=== PATIENT | male | born 1960 | race Caucasian/White ===

== ENCOUNTER → 2016-08-19 | Outpatient (CLI) | payer OTHER ==
[~2016-08-19] MED LIST: AMITRYPTYLINE PO; BACLOFEN10 MG PO; CALCIUM CARBON650 M1 PO; CYMBALTA PO; DEPAKOTE ER PO; DOCUSATE SODIU100 MG PO; FIBER LAX625 MG PO; FISH OIL 1,0001 EAC1 PO; FLOVENT DISKUS50 MCG INH; GABAPENTIN600 MG; GABAPENTIN800 MG PO; HYDROCODON-ACE1 EAC5 PO; KLONOPIN0.5 MG PO; LORTAB 5-325 M1 EACH PO; LOSARTAN POTAS100 MG PO; MOBIC15 MG PO; MULTIVITAMINS1 EAC3 PO; PRAVACHOL PO; PROTONIX PO; SYNTHROID25 MCG PO
--- NOTE | ~2016-08-19 | EKG ---
PATIENT: DIAMOND FRAZIER UNIT #: [id number] Ventricular Rate: 70 BPM Atrial Rate: 70 BPM P-R Interval: 156 ms QRS Duration: 90 ms Q-T Interval: 360 ms QTC Calculation(Bezet): 388 ms P [place]: 40 degrees Calculated R [place]: 60 degrees Calculated T [place]: 90 degrees Diagnosis Line: Normal sinus rhythm Diagnosis Line: Possible Left atrial enlargement Diagnosis Line: Nonspecific T wave abnormality Diagnosis Line: Abnormal ECG Diagnosis Line: When compared with ECG of 05-JAN-2014 09:10, Diagnosis Line: No significant change was found Diagnosis Line: Confirmed by DIAMOND PAGE MD ([id number]) on Diagnosis Line: 08/23/2016 3:11:48 PM INTERPRETING MD: KAYLEE RUDD
[2016-08-19 15:15] LABS: CALCIUM SERUM 9.7 mg/dL (8.4-10.2); GLOM FILT RATE Estimated 83.2 mL/min (>60); POTASSIUM 5.1 mmol/L (3.5-5.1)
== END | disposition home or self-care (01) ==
LOC: CAMB 13:38
PROVIDERS: Surgery
DX: Z01.818 Encounter for other preprocedural examination (principal); K43.9 Ventral hernia without obstruction or gangrene
CPT/HCPCS: 36415; 80048; 93005

== ENCOUNTER 2016-08-26 17:33 | Emergency (ER) | payer OTHER ==
--- NOTE | ~2016-08-26 | EKG ---
PATIENT: DIAMOND FRAZIER UNIT #: [id number] Ventricular Rate: 74 BPM Atrial Rate: 74 BPM P-R Interval: 148 ms QRS Duration: 88 ms Q-T Interval: 386 ms QTC Calculation(Bezet): 428 ms P [place]: 30 degrees Calculated R [place]: 69 degrees Calculated T [place]: 91 degrees Diagnosis Line: Normal sinus rhythm Diagnosis Line: Nonspecific T wave abnormality Diagnosis Line: Abnormal ECG Diagnosis Line: When compared with ECG of 19-AUG-2016 14:26, Diagnosis Line: No significant change was found Diagnosis Line: Confirmed by REMY RIZVI MD ([id number]) on Diagnosis Line: 08/27/2016 1:58:36 PM INTERPRETING MD: ROSA
[2016-08-26 19:21] LABS: HEMATOCRIT 40.9 % (38.0-50.0); HEMOGLOBIN 13.2 gm/dL (13.0-16.0); LYMPHOCYTE# 0.8 X10e3 (1.0-3.5); LYMPHOCYTE% 4.8 % (17.0-45.0); MEAN CELL VOLUME 94.1 FL (83-96); MEAN CORPUSCULAR HEMOGLOBIN 30.4 PG (28-34); MEAN CORPUSCULAR HGB CONC 32.3 g/dL (30-36); MEAN PLATELET VOLUME 7.7 FL (6.5-11.5); MONOCYTE# 1.1 X10e3 (0-1.0); MONOCYTE% 6.6 % (3.0-12.0); NEUTROPHIL# 15.4 X10e3 (1.5-7.1); NEUTROPHIL% 88.6 % (40-75); PLATELET COUNT 306 X10e3 (140-420); RED BLOOD COUNT 4.34 X10e (3.90-5.60); RED CELL DISTRIBUTION WIDTH 13.7 % (11.0-15.5); WHITE BLOOD COUNT 17.3 X10e3 (4.0-10.5)
[2016-08-26 19:24] LABS: DIFF IND YES
[2016-08-26 19:38] LABS: CALCIUM SERUM 8.5 mg/dL (8.4-10.2); CREATININE SERUM 1.2 mg/dL (0.6-1.4); GLOM FILT RATE Estimated 66.7 mL/min (>60)
[2016-08-26 20:12] LABS: HYPOCHROMIA SL; PLATELET ESTIMATE NORMAL (NORMAL)
== END 2016-08-26 21:50 | disposition home or self-care (01) ==
LOC: CED 17:33
PROVIDERS: Emergency Medicine
DX: L76.22 Postprocedural hemorrhage of skin and subcutaneous tissue following other procedure (principal); I10 Essential (primary) hypertension; Z79.899 Other long term (current) drug therapy
CPT/HCPCS: 36415; 80048; 85025; 85610; 93005; 99283

== ENCOUNTER → 2016-08-26 | Day surgery (SDC) | payer OTHER ==
--- NOTE | ~2016-08-26 | OR ---
Unit #: [id number] #: [id number] Patient: DIAMOND FRAZIER [id number] [address] [address] [id number] MR#: [id number] NAME: DIAMOND FRAZIER ROOM: Date of Procedure: 08/26/2016 Admission Date: 08/26/2016 Surgeon: Gianfranco Wilkinson M.D. : 1960 Attending Physician: Gianfranco Wilkinson M.D. Primary Care Physician: Radu Romano M.D. OPERATIVE REPORT PREOPERATIVE DIAGNOSIS Incarcerated incisional hernia. POSTOPERATIVE DIAGNOSIS Complex incarcerated incisional hernia measuring 8 x 6 cm. PROCEDURE PERFORMED Laparoscopic ventral hernia repair of incarcerated incisional hernia with 8 x 6 Ventralight mesh. BOTTLE FILLER Percy Sarmiento M.D. ANESTHESIA General endotracheal anesthesia. INDICATIONS FOR PROCEDURE The patient is a 55-year-old gentleman, who presents with incarcerated incisional hernia. DESCRIPTION OF PROCEDURE The patient was taken to the operating theater and placed in a supine position. General anesthesia was induced. His abdomen was prepped and draped. A 5-mm Optiview trocar was placed in the left upper quadrant without difficulty. The abdomen was insufflated to 15 mmHg with CO2. Under direct vision, I placed left lower quadrant 10 mm, right upper quadrant 5 mm. The patient was found to have a complex incisional hernia with multiple defects. This was incarcerated with omentum. The omentum was reduced. I took down the falciform ligament with Bovie electrocautery. I placed 8 x 6 Ventralight mesh into position. This was held in place with single-stranded Vicryl suture and delivered transcutaneous. I then secured with SorbaFix Tacker in two circumferential rows. This covered the defect by at least 5 cm. Hemostasis was adequate. I removed the ports under direct vision. The skin wounds were closed with 4-0 Vicryl. Sutures were cut at skin level. The patient tolerated the procedure well and sent to the recovery room in good condition. Dictated by... Gianfranco Wilkinson M.D. Unit #: [id number] #: [id number] Patient: DIAMOND FRAZIER JNO/modl TD: 08/26/2016 12:50 JOB #: [id number] OPERATIVE REPORT Page 1 of 1 X Gianfranco Wilkinson MD PROCEDURE OPERATIVE NOTE
== END | disposition home or self-care (01) ==
LOC: CSUR 05:54
DX: K43.6 Other and unspecified ventral hernia with obstruction, without gangrene (principal); M19.90 Unspecified osteoarthritis, unspecified site; F41.9 Anxiety disorder, unspecified; I10 Essential (primary) hypertension; F32.9 Major depressive disorder, single episode, unspecified; E78.00 Pure hypercholesterolemia, unspecified; E78.5 Hyperlipidemia, unspecified; E03.9 Hypothyroidism, unspecified; G43.909 Migraine, unspecified, not intractable, without status migrainosus; F17.210 Nicotine dependence, cigarettes, uncomplicated; Z87.19 Personal history of other diseases of the digestive system; Z88.5 Allergy status to narcotic agent; Z86.010 Personal history of colon polyps; Z80.0 Family history of malignant neoplasm of digestive organs; Z80.8 Family history of malignant neoplasm of other organs or systems; Z79.1 Long term (current) use of non-steroidal anti-inflammatories (NSAID); Z79.899 Other long term (current) drug therapy; Z79.891 Long term (current) use of opiate analgesic; Z79.51 Long term (current) use of inhaled steroids; Z90.49 Acquired absence of other specified parts of digestive tract; Z98.1 Arthrodesis status; Z98.890 Other specified postprocedural states
CPT/HCPCS: C1787; J0690; J1100; J1170; J1644; J1885; J2250; J2710; J2765